=== PATIENT | female | born 1960 | race Caucasian/White ===

== ENCOUNTER 2018-09-06 13:16 | Emergency (ER) | payer BC, OTHER ==
[2018-09-06] MEDS ORDERED: NA CHLORIDE 0.9% 1,000 ML ONE (14:21)
[2018-09-06 14:31] LABS: Absolute Lymphocytes (CBC) 3.5 K/uL (0.7-4.9); Absolute Monocytes 0.6 K/uL (0.1-1.3); Absolute Neutrophil 5.8 K/uL (1.8-8.0); Basophils % 0.7 % (0-1.3); Eosinophils % 0.8 % (0-4.4); Hematocrit 44.5 % (36.0-45.0); Lymphocytes % 34.6 % (15.3-44.8); MPV 9.2 fL (7.6-11.3); Monocytes % 6.2 % (3.3-12.3); RBC Red Blood Cell Count 5.08 M/uL (3.86-4.86)
[2018-09-06 14:52] LABS: ALT/SGPT 22 U/L (12-78); AST/SGOT 16 U/L (15-37); Albumin 4.1 g/dL (3.4-5.0); Alkaline Phosphatase 81 U/L (45-117); BUN Blood Urea Nitrogen 10 mg/dL (7-18); Bicarbonate 25 mmol/L (21-32); Bilirubin Direct < 0.1 mg/dL (0-0.2); Bilirubin Total 0.2 mg/dL (0.2-1.0); Glucose Level 155 mg/dL (74-106); Lipase 172 U/L (73-393); Sodium Level 142 mmol/L (136-145)
--- NOTE | 2018-09-06 16:53 | RAD REPORT ---
EXAM DESCRIPTION: CT - Abdomen Pelvis W Contrast - 09/06/2018 4:19 pm CLINICAL HISTORY: Abdominal pain. Right lower quadrant pain COMPARISON: None. TECHNIQUE: Computed axial tomography of the abdomen and pelvis was obtained. 100 cc Isovue-300 is ad ministered intravenously. Oral contrast was given. All CT scans are performed using dose optimization technique as appropriate and may include automated exposure control or mA/KV adjustment according to patient size. FINDINGS: Fatty liver. A gallstone is present within a contracted gallbladder Sub centimeter splenic cyst Pancreas, adrenals and kidneys appear unremarkable. The appendix is normal caliber. There is no evidence of diverticulitis A 3 centimeter fatty mass abuts the ascending colon with stranding in the adjacent fat consistent wit h epiploic appendagitis IMPRESSION: Epiploic appendagitis involving the ascending colon Cholelithiasis
--- NOTE | 2018-09-06 17:10 | ER ---
Nurse's Notes [facility] Name: Lia Valdovinos Age: 58 yrs Sex: Female : 1960 Arrival Date: 09/06/2018 Time: 13:23 Bed 26 Private MD: Diagnosis: Lower abdominal pain, unspecified-epiploic appendigitis Presentation: 09/06 13:24 Presenting complaint: Patient states: Pt reports RLQ pain intensifying since Friday, la1 denies N/V/D. States it feels like "a ball of fire". Transition of care: patient was not received from another setting of care. Onset of symptoms was September 06, 2018. Risk Assessment: Do you want to hurt yourself or someone else? Patient reports no desire to harm self or others. Initial Sepsis Screen: Does the patient meet any 2 criteria? No. Patient's initial sepsis screen is negative. Does the patient have a suspected source of infection? No. Patient's initial sepsis screen is negative. Care prior to arrival: None. 13:24 Method Of Arrival: Ambulatory la1 13:24 Acuity: TATIANNA 3 la1 Historical: - Allergies: 13:24 No Known Allergies; la1 - PMHx: 13:24 Diabetes - NIDDM; Hypertension; la1 - PSHx: 13:24 Hysterectomy; la1 - Immunization history:: Adult Immunizations up to date. - Social history:: Smoking status: Patient uses tobacco products, smokes one-half pack cigarettes per day. - Ebola Screening: : No symptoms or risks identified at this time. Screenin:00 Abuse screen: Denies threats or abuse. Nutritional screening: No deficits noted. tl3 Tuberculosis screening: No symptoms or risk factors identified. Fall Risk None identified. Assessment: 14:00 General: Appears comfortable, slender, well groomed, well developed, well nourished, tl3 Behavior is calm, cooperative, appropriate for age. Pain: Complains of pain in abdomen. Neuro: Level of Consciousness is awake, alert, obeys commands, Oriented to person, place, time, situation, Appropriate for age. Cardiovascular: Patient's skin is warm and dry. Respiratory: Airway is patent Respiratory effort is even, unlabored, Respiratory pattern is regular, symmetrical. GI: Abdomen is round Abdomen is tender to palpation in right lower quadrant and left lower quadrant. EENT:. Derm: No signs and/or symptoms reported regarding the dermatologic system. Musculoskeletal: No signs and/or symptoms reported regarding the musculoskeletal system. 14:36 Reassessment: pt completed oral contrast, CT notified. tl3 15:54 Reassessment: Patient appears in no apparent distress at this time. No changes from tl3 previously documented assessment. Patient and/or family updated on plan of care and expected duration. Pain level reassessed. Patient is alert, oriented x 3, equal unlabored respirations, skin warm/dry/pink. pt ambulated to restroom, no other needs noted. 17:48 Reassessment: Patient appears in no apparent distress at this time. No changes from tl3 previously documented assessment. Patient and/or family updated on plan of care and expected duration. Pain level reassessed. Patient is alert, oriented x 3, equal unlabored respirations, skin warm/dry/pink. pt being discharged. Vital Signs: 13:25 BP 151 / 79; Pulse 97; Resp 18; Temp 98.0; Pulse Ox 97% on R/A; Weight 66.68 kg; Height la1 5 ft. 6 in. (167.64 cm); Pain 4/10; 14:00 BP 142 / 75; Pulse 82; Resp 18; Pulse Ox 98% on R/A; tl3 15:54 BP 149 / 73; Pulse 82; Resp 18; Pulse Ox 99% on R/A; tl3 17:48 BP 149 / 73; Pulse 83; Resp 18; Pulse Ox 100% on R/A; tl3 13:25 Body Mass Index 23.73 (66.68 kg, 167.64 cm) la1 ED Course: 13:23 Patient arrived in ED. mr 13:25 Triage completed. la1 13:26 Arm band placed on right wrist. la1 13:34 Keegan Corona PA is PHCP. cp 13:34 Maco Aguilar MD is Attending Physician. cp 14:00 Bed in low position. Call light in reach. Side rails up X 1. Warm blanket given. Pillow jp3 given. 14:00 Pulse ox on. NIBP on. jp3 14:00 No provider procedures requiring assistance completed. Initial lab(s) drawn, by la, tl3 sent to lab. Inserted saline lock: 20 gauge in right antecubital area, using aseptic technique. Blood collected. 14:08 Coco Hunt, RN is Primary Nurse. tl3 16:19 CT Abd/Pelvis - W/Contrast: give oral contrast In Process Unspecified. EDMS 17:48 IV discontinued, intact, bleeding controlled, No redness/swelling at site. Pressure tl3 dressing applied. Administered Medications: 14:32 Drug: NS 0.9% 500 ml Route: IV; Rate: bolus; Site: right antecubital; Delivery: Primary tl3 tubing; 15:35 Follow up: IV Status: Completed infusion; IV Intake: 500ml tl3 15:35 Drug: NS 0.9% 1000 ml Route: IV; Rate: 125 ml/hr; Site: right antecubital; Delivery: tl3 Primary tubing; 17:51 Follow up: IV Status: Completed infusion; IV Intake: 500ml tl3 Intake: 15:35 IV: 500ml; Total: 500ml. tl3 17:51 IV: 500ml; Total: 1000ml. tl3 Outcome: 17:10 Discharge ordered by MD. cp 17:48 Discharged to home ambulatory. tl3 17:48 Condition: stable 17:48 Discharge instructions given to patient, Instructed on discharge instructions, follow up and referral plans. medication usage, Demonstrated understanding of instructions, follow-up care, medications, Prescriptions given X 2. 17:54 Patient left the ED. tl3 Signatures: Dispatcher [employer] VIKAAL AlvaroJessica MechelleZi, RN RN la1 Keegan Corona PA PA cp Lowrey, Tammy, RN RN tl3 Fede Kitchen jp3
--- NOTE | 2018-09-06 17:10 | EDPHYS ---
Physician Documentation [facility] Name: Lia Valdovinos Age: 58 yrs Sex: Female : 1960 Arrival Date: 09/06/2018 Time: 13:23 Bed 26 Private MD: ED Physician Maco Aguilar HPI: 09/06 14:05 This 58 yrs old Female presents to ER via Ambulatory with complaints of cp Abdominal Pain. 14:05 The patient presents with abdominal pain right lower quadrant. cp 14:05 Onset: The symptoms/episode began/occurred 2 day(s) ago. The symptoms do not radiate. cp Associated signs and symptoms: Pertinent negatives: blood in stools, chest pain, constipation, diarrhea, dysuria, fever, vomiting. 14:05 The symptoms are described as burning. Severity of pain: in the emergency department cp the pain is actually worse mildly. Historical: - Allergies: 13:24 No Known Allergies; la1 - PMHx: 13:24 Diabetes - NIDDM; Hypertension; la1 - PSHx: 13:24 Hysterectomy; la1 - Immunization history:: Adult Immunizations up to date. - Social history:: Smoking status: Patient uses tobacco products, smokes one-half pack cigarettes per day. - Ebola Screening: : No symptoms or risks identified at this time. ROS: 14:10 Constitutional: Negative for body aches, chills, fever, poor PO intake. cp 14:10 Eyes: Negative for injury, pain, redness, and discharge. cp 14:10 ENT: Negative for drainage from ear(s), ear pain, sore throat, difficulty swallowing, difficulty handling secretions. 14:10 Cardiovascular: Negative for chest pain, palpitations. 14:10 Respiratory: Negative for cough, shortness of breath, wheezing. 14:10 Abdomen/GI: Positive for abdominal pain, Negative for vomiting, constipation, anorexia, black/tarry stool, rectal bleeding. 14:10 Back: Negative for pain at rest, pain with movement, radiated pain. 14:10 : Negative for urinary symptoms. 14:10 Skin: Negative for cellulitis, rash. 14:10 Neuro: Negative for altered mental status, headache, weakness. 14:10 All other systems are negative. Exam: 14:25 Constitutional: The patient appears in no acute distress, alert, awake, non-toxic, well cp developed, well nourished. 14:25 Head/Face: Normocephalic, atraumatic. cp 14:25 Eyes: Periorbital structures: appear normal, Conjunctiva: normal, no exudate, no injection, Sclera: no appreciated abnormality, Lids and lashes: appear normal, bilaterally. 14:25 ENT: External ear(s): are unremarkable, Nose: is normal, Mouth: Lips: moist, Oral mucosa: moist, Posterior pharynx: is normal, airway is patent, no erythema, no exudate. 14:25 Neck: ROM/movement: is normal, is supple, without pain, no range of motions limitations, no nuchal rigidity. 14:25 Chest/axilla: Inspection: normal, Palpation: is normal, no crepitus, no tenderness. 14:25 Cardiovascular: Rate: normal, Rhythm: regular. 14:25 Respiratory: the patient does not display signs of respiratory distress, Respirations: normal, no use of accessory muscles, no retractions, no splinting, no tachypnea, labored breathing, is not present, Breath sounds: are clear throughout, no decreased breath sounds, no stridor, no wheezing. 14:25 Abdomen/GI: Inspection: abdomen appears normal, Bowel sounds: active, all quadrants, Palpation: soft, in all quadrants, moderate abdominal tenderness, in the right lower quadrant, rebound tenderness, is not appreciated, involuntary guarding, is not appreciated. 14:25 Back: pain, is absent, ROM is normal. 14:25 Skin: cellulitis, is not appreciated, no rash present. Vital Signs: 13:25 BP 151 / 79; Pulse 97; Resp 18; Temp 98.0; Pulse Ox 97% on R/A; Weight 66.68 kg; Height la1 5 ft. 6 in. (167.64 cm); Pain 4/10; 14:00 BP 142 / 75; Pulse 82; Resp 18; Pulse Ox 98% on R/A; tl3 15:54 BP 149 / 73; Pulse 82; Resp 18; Pulse Ox 99% on R/A; tl3 17:48 BP 149 / 73; Pulse 83; Resp 18; Pulse Ox 100% on R/A; tl3 13:25 Body Mass Index 23.73 (66.68 kg, 167.64 cm) la1 MDM: 13:42 Patient medically screened. cp 14:00 Differential diagnosis: appendicitis, cholecystitis, Cholelithiasis, diverticulitis, cp gastritis, non-specific abd pain, pancreatitis, Pyelonephritis, Ureterolithiasis, urinary tract infection. 17:00 Data reviewed: vital signs, nurses notes, lab test result(s), radiologic studies, CT cp scan. 09/06 13:56 Order name: Basic Metabolic Panel; Complete Time: 15:20 cp 09/06 16:58 Interpretation: Normal except: CL 111; GLUC 155; GFR 86. cp 09/06 13:56 Order name: CBC with Diff; Complete Time: 15:20 cp 09/06 16:59 Interpretation: Normal except: RBC 5.08. cp 09/06 13:56 Order name: Creatinine for Radiology; Complete Time: 15:20 cp 09/06 13:56 Order name: Hepatic Function; Complete Time: 15:20 cp 09/06 13:56 Order name: Lipase; Complete Time: 15:20 cp 09/06 13:56 Order name: IV Saline Lock; Complete Time: 14:33 cp 09/06 13:56 Order name: Labs collected and sent; Complete Time: 14:33 cp 09/06 13:56 Order name: CT Abd/Pelvis - W/Contrast: give oral contrast; Complete Time: 16:58 cp 09/06 17:10 Order name: PO challenge; Complete Time: 17:54 cp Administered Medications: 14:32 Drug: NS 0.9% 500 ml Route: IV; Rate: bolus; Site: right antecubital; Delivery: Primary tl3 tubing; 15:35 Follow up: IV Status: Completed infusion; IV Intake: 500ml tl3 15:35 Drug: NS 0.9% 1000 ml Route: IV; Rate: 125 ml/hr; Site: right antecubital; Delivery: tl3 Primary tubing; 17:51 Follow up: IV Status: Completed infusion; IV Intake: 500ml tl3 Disposition: 09/07 16:57 Co-signature as Attending Physician, Maco Aguilar MD. Disposition: 09/06/18 17:10 Discharged to Home. Impression: Lower abdominal pain, unspecified - epiploic appendigitis. - Condition is Stable. - Discharge Instructions: Abdominal Pain, Adult. - Prescriptions for Naprosyn 500 mg Oral Tablet - take 1 tablet by ORAL route 2 times per day take with food; 20 tablet. Zofran 4 mg Oral Tablet - take 1 tablet by ORAL route every 12 hours As needed; 20 tablet. - Medication Reconciliation Form, Thank You Letter, Antibiotic Education, Prescription Opioid Use form. - Follow up: Private Physician; When: 1 - 2 days; Reason: Recheck today's complaints. - Problem is new. - Symptoms have improved. Signatures: Dispatcher [employer] EDMS Zi Min RN RN la1 Keegan Corona PA PA cp Maco Aguilar MD MD gs Coco Hunt RN RN tl3 Corrections: (The following items were deleted from the chart) 09/06 17:54 17:10 09/06/2018 17:10 Discharged to Home. Impression: Lower abdominal pain, tl3 unspecified - epiploic appendigitis. Condition is Stable. Forms are Medication Reconciliation Form, Thank You Letter, Antibiotic Education, Prescription Opioid Use. Follow up: Private Physician; When: 1 - 2 days; Reason: Recheck today's complaints. Problem is new. Symptoms have improved. cp
== END 2018-09-06 17:54 | disposition home or self-care (01) ==
LOC: ER 13:16
DX: R10.31 Right lower quadrant pain (principal); I10 Essential (primary) hypertension; F17.210 Nicotine dependence, cigarettes, uncomplicated
CPT/HCPCS: 36415; 74177; 80048; 80076; 83690; 85025; 96360; 96361; 99284; J7030; Q9967